=== PATIENT | male | born 1990 | race Hispanic/Latino ===

== ENCOUNTER 2017-02-22 11:01 | Emergency (ER) | payer OTHER ==
[~2017-02-22] VITALS: Ht 170.2 cm; Wt 110.0 kg
[2017-02-22] MEDS ORDERED: CEPHALEXIN500 M1 PO (13:06)
[2017-02-22] MEDS ORDERED: HYDROCO/APAP1 TA9 PO (13:06)
[2017-02-22 13:18] VITALS: BP 131/59
== END 2017-02-22 13:51 | disposition home or self-care (01) | DRG 914 ==
LOC: ED 11:01
PROC: 0JCK3ZZ Extirpation of Matter from Left Hand Subcutaneous Tissue and Fascia, Percutaneous Approach (ICD-10-PCS; principal; 2017-02-22)
PROC: 2W3FX1Z Immobilization of Left Hand using Splint (ICD-10-PCS; 2017-02-22)
DX: S61.442A Puncture wound with foreign body of left hand, initial encounter (principal); W29.4XXA Contact with nail gun, initial encounter; Y93.H3 Activity, building and construction; Y92.79 Other farm location as the place of occurrence of the external cause